=== PATIENT | male | born 1950 | race Caucasian/White ===

== ENCOUNTER → 2016-11-20 | Outpatient (CLI) | payer OTHER ==
--- NOTE | 2016-11-20 10:13 | DX ---
Right Hand, Three Views. History: Right third metacarpal fracture fixation. Follow up. Comparison: 14 October 2016. Findings: The minimally displaced oblique fracture of the third metacarpal has been reduced to near-a natomic alignment and fixated with two fixation screws. No evidence for lucency around the screws or hardware fracture. There is diminished visualization of the fracture indicating osseous bridging. No new fracture is visualized. No other significant interval change. Impression: Postsurgical changes of open reduction, internal fixation of a third metacarpal diaphysea l fracture now in near anatomic alignment with interval healing and no hardware complication.
== END ==
LOC: BMCIMAGING 09:45
PROVIDERS: ATTEND Physician Assistant
DX: S62.602D Fracture of unspecified phalanx of right middle finger, subsequent encounter for fracture with routine healing (principal)

== ENCOUNTER → 2016-12-15 | Outpatient (CLI) | payer OTHER | LOC: BMCIMAGING 09:49 | PROVIDERS: ATTEND Family Medicine | DX: S62.320D Displaced fracture of shaft of second metacarpal bone, right hand, subsequent encounter for fracture with routine healing (principal) ==